=== PATIENT | female | born 1985 | race Caucasian/White ===

== ENCOUNTER 2019-08-22 00:06 | Inpatient (IN) | payer MEDICAID ==
[2019-08-22] MEDS ORDERED: Carboprost Tromethamine 250 MCG/1 ML Amp IM PRN (00:12)
[2019-08-22] MEDS ORDERED: Tranexamic Acid 1,000 MG in Sodium Chloride 0.9% 100 ML IV PRN (00:12)
[2019-08-22] MEDS ORDERED: Water For Irrigation,Sterile 1,000 ML Container IRR PRN (00:12)
[2019-08-22] MEDS ORDERED: Lidocaine 1% 50 ML MDV INJECT PRN (00:12)
[2019-08-22] MEDS ORDERED: Sodium Chloride 0.9% 2.5 ML Syringe FLUSH PRN (00:12)
[2019-08-22] MEDS ORDERED: Misoprostol 200 MCG Tab PO PRN (00:12)
[2019-08-22] MEDS ORDERED: Nalbuphine 10 MG/1 ML Vial IVPUSH PRN (00:12)
[2019-08-22] MEDS ORDERED: Ondansetron 4 MG/2 ML SDV IVPUSH PRN (00:12)
[2019-08-22] MEDS ORDERED: Terbutaline 1 MG/ML SDV SUBCUT PRN (00:12)
[2019-08-22] MEDS ORDERED: Methylergonovine 0.2 MG/1 ML Amp IM PRN (00:12)
[2019-08-22] MEDS ORDERED: Sodium Chloride 0.9% 10 ML Syringe FLUSH PRN (00:12)
[2019-08-22] MEDS ORDERED: Sodium Chloride 0.9% 10 ML SDV IV PRN (00:12)
[2019-08-22] MEDS ORDERED: Oxytocin/0.9 % Sodium Chloride 30 UNIT/500 ML BAG IV SCH (00:15)
[2019-08-22] MEDS ORDERED: Ampicillin 2 GM in Sodium Chloride 0.9% 100 ML IV ONE (01:00)
[2019-08-22] MEDS: Lactated Ringers 1,000 ML IV SCH ×2 (01:35→09:49)
[2019-08-22] MEDS: Misoprostol 25 MCG (1/4 of 100 MCG) Tab VAG PRN ×2 (01:45→10:01)
[2019-08-22] MEDS: Misoprostol 25 MCG (1/4 of 100 MCG) Tab PO PRN ×2 (01:45→10:01)
[2019-08-22] MEDS ORDERED: Misoprostol 25 MCG (1/4 of 100 MCG) Tab VAG PRN (05:00)
[2019-08-22] MEDS ORDERED: Misoprostol 25 MCG (1/4 of 100 MCG) Tab PO PRN (05:00)
[2019-08-22] MEDS: Ampicillin 1 GM in Sodium Chloride 0.9% 50 ML IV SCH ×4 (05:32→18:13)
--- NOTE | 2019-08-22 10:13 | PCM.LDHP ---
L&D History of Present Illness - General Date of Service: 08/22/19 Admit Problem/Dx: Patient Status Order with Admit Dx/Problem 08/22/19 00:12 Patient Status [ADT] Routine Admission Diagnosis/Problem Admission Diagnosis/Problem 08/22/19 10:07 33 yo EDC 08/29/2019 39 0/7wks O+, RI, GBS pos. IOL due to CHTN in Source of Information: Patient History Limitations: Reports: No Limitations - History of Present Illness Improves with: Reports: None Worsens with: Reports: None Associated Symptoms: Reports: N - Related Data Allergies/Adverse Reactions: Allergies Allergy/AdvReac Type Severity Reaction Status Date / Time latex Allergy Rash Verified 08/16/19 00:38 Home Medications: Home Meds Aspirin 1 tab PO BEDTIME 08/16/19 [History] Pnv No.95/Ferrous Fum/Folic AC [ Multivitamin Tablet] 1 tab PO BEDTIME 08/16/19 [History] Past Medical History HEENT History: Reports: Impaired Vision, Other (See Below) Other HEENT History: wears glasses for reading and driving at night. 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 Psychiatric History: Reports: Depression, Other (See Below) Other Psychiatric History: medicated very short-term Dermatologic History: Reports: Eczema - Infectious Disease History Infectious Disease History: Reports: Chicken Pox - Past Surgical History HEENT Surgical History: Reports: None Cardiovascular Surgical History: Reports: None Dermatological Surgical History: Reports: None Social & Family History - Tobacco Use Smoking Status *Q: Never Smoker Second Hand Smoke Exposure: Yes - Caffeine Use Caffeine Use: Reports: Coffee, Soda Caffeine Use Comment: little bit of soda (one a day), little bit of coffee (not often) - Recreational Drug Use Recreational Drug Use: No H&P Review of Systems - Review of Systems: Review Of Systems: See Below General: Reports: No Symptoms HEENT: Reports: No Symptoms Pulmonary: Reports: No Symptoms Cardiovascular: Reports: No Symptoms Gastrointestinal: Reports: No Symptoms Genitourinary: Reports: No Symptoms Musculoskeletal: Reports: No Symptoms Skin: Reports: No Symptoms Psychiatric: Reports: No Symptoms Neurological: Reports: No Symptoms Hematologic/Lymphatic: Reports: No Symptoms Immunologic: Reports: No Symptoms L&D Exam - Exam Exam: See Below - Vital Signs Weight: 106.594 kg - OB Specific Contraction Intensity: Mild Movement: Active Heart Tones: Present Heart Tones per Min: 146 Heart Rate (FHR) Variability: Moderate (6-25 bmp) Presentation: Vertex - Santoyo Score Santoyo Score Cervix Position: Midposition Santoyo Score Consistency: Medium Santoyo Score Effacement: 0-30% Santoyo Score Dilation: 1-2 cm Santoyo Score Infant's Station: -3 Santoyo Score Total: 3 - Exam General: Alert, Oriented, Cooperative HEENT: Hearing Intact Lungs: Clear to Auscultation, Normal Respiratory Effort. No: Decreased Breath Sounds Cardiovascular: Regular Rate, Regular Rhythm, Normal S1, Normal S2 GI/Abdominal Exam: Normal Bowel Sounds, Soft, Non-Tender, Pelvis Stable Rectal Exam: Deferred Genitourinary: Normal external exam, Normal bimanual exam, Cervical dilitation. No: Cervical fluid, Vaginal bleeding Back Exam: Normal Inspection, Full Range of Motion Extremities: Normal Inspection, Normal Range of Motion, Non-Tender, No Pedal Edema, Normal Capillary Refill. No: Carlos's Sign Skin: Warm, Dry, Intact Neurological: Reflexes Equal Bilateral, Normal Speech, Normal Tone Psychiatric: Alert, Normal Affect, Normal Mood - Patient Data Lab Results Last 24 hrs: Laboratory Results - last 24 hr 08/22/19 08/22/19 08/22/19 Range/Units 00:45 01:10 01:10 WBC 9.81 (4.0-11.0) K/uL RBC 4.48 (4.30-5.90) M/uL Hgb 14.1 (12.0-16.0) g/dL Hct 40.7 (36.0-46.0) % MCV 90.8 (80.0-98.0) fL MCH 31.5 (27.0-32.0) pg MCHC 34.6 (31.0-37.0) g/dL RDW Std Deviation 43.5 (28.0-62.0) fl RDW Coeff of Clayton 13 (11.0-15.0) % Plt Count 181 (150-400) K/uL MPV 10.00 (7.40-12.00) fL SARS-CoV-2 RNA (RT-PCR) NEGATIVE (NEGATIVE) Blood Type O POSITIVE Antibody Screen NEGATIVE Result Diagrams: 08/22/19 01:10 - Problem List (1) Supervision of normal IUP (intrauterine ) in primigravida SNOMED Code(s): 72850799, 014366016, 615598313, 368230928 ICD Code: Z34.00 - ENCNTR FOR SUPRVSN OF NORMAL FIRST , UNSP TRIMESTER Status: Acute Priority: High Current Visit: Yes Qualifiers: Trimester: third trimester Qualified Code(s): Z34.03 - Encounter for supervision of normal first , third trimester (2) Chronic hypertension affecting SNOMED Code(s): 22669183 ICD Code: O10.919 - UNSP PRE-EXISTING HTN COMP , UNSP TRIMESTER Status: Acute Priority: High Current Visit: Yes Problem List Initiated/Reviewed/Updated: Yes Orders Last 24hrs: Active Orders 24 hr Category Date Time Status Patient Status [ADT] Routine ADT 08/22/19 00:12 Active Bedrest Bathroom Privileges [RC] ASDIRECTED Care 08/22/19 00:12 Active Communication Order [RC] ASDIRECTED Care 08/22/19 00:12 Active Communication Order [RC] ASDIRECTED Care 08/22/19 00:12 Active Communication Order [RC] ASDIRECTED Care 08/22/19 00:12 Active Heart Tones [RC] CONTINUOUS Care 08/22/19 00:12 Active Non Stress Test [RC] PER UNIT ROUTINE Care 08/22/19 00:12 Active May Shower [RC] ASDIRECTED Care 08/22/19 00:12 Active Notify Provider [RC] PRN Care 08/22/19 00:12 Active Notify Provider [RC] PRN Care 08/22/19 00:12 Active Notify Provider [RC] PRN Care 08/22/19 00:12 Active Notify Provider [RC] STAT Care 08/22/19 00:12 Active Oxygen Therapy [RC] ASDIRECTED Care 08/22/19 00:12 Active Peripheral IV Care [RC] PRN Care 08/22/19 00:12 Active Up ad Ayla [RC] ASDIRECTED Care 08/22/19 00:12 Active Vaginal Exam [RC] PRN Care 08/22/19 00:12 Active Vaginal Exam [RC] PRN Care 08/22/19 00:12 Active Vital Signs [RC] PER UNIT ROUTINE Care 08/22/19 00:12 Active Regular Diet [DIET] Diet 08/22/19 Breakfast Active RPR (SYPHILIS SERO) W/ RFLX [REF] Routine Lab 08/22/19 01:10 Received Ampicillin 1 gm Med 08/22/19 05:00 Active Sodium Chloride 0.9% [Normal Saline] 50 ml IV Q4H Carboprost Tromethamine [Hemabate DS] Med 08/22/19 00:12 Active 250 mcg IM ASDIRECTED PRN Lactated Ringers [Ringers, Lactated] 1,000 ml Med 08/22/19 00:15 Active IV ASDIRECTED Lidocaine 1% [Xylocaine 1%] Med 08/22/19 00:12 Active 50 ml INJECT ONETIME PRN Methylergonovine [Methergine] Med 08/22/19 00:12 Active 0.2 mg IM ASDIRECTED PRN Nalbuphine [Nubain] Med 08/22/19 00:12 Active 10 mg IVPUSH Q1H PRN Ondansetron [Zofran] Med 08/22/19 00:12 Active 4 mg IVPUSH Q6H PRN Oxytocin/0.9 % Sodium Chloride [Oxytocin 30 Unit/500 ML Med 08/22/19 00:15 Active -NS] 30 unit in 500 ml IV TITRATE Oxytocin/0.9 % Sodium Chloride [Oxytocin 30 Unit/500 ML Med 08/22/19 00:15 Active -NS] 30 unit in 500 ml IV TITRATE Sodium Chloride 0.9% [Normal Saline] Med 08/22/19 00:12 Active 10 ml IV ASDIRECTED PRN Sodium Chloride 0.9% [Saline Flush] Med 08/22/19 00:12 Active 10 ml FLUSH ASDIRECTED PRN Sodium Chloride 0.9% [Saline Flush] Med 08/22/19 00:12 Active 2.5 ml FLUSH ASDIRECTED PRN Terbutaline [Brethine] Med 08/22/19 00:12 Active 0.25 mg SUBCUT ASDIRECTED PRN Tranexamic Acid [Cyklokapron] 1,000 mg Med 08/22/19 00:12 Active Sodium Chloride 0.9% [Normal Saline] 100 ml IV ONETIME Water For Irrigation,Sterile [Sterile Water for Med 08/22/19 00:12 Active Irrigation] 1,000 ml IRR ASDIRECTED PRN miSOPROStoL [Cytotec] Med 08/22/19 00:12 Active 200 mcg PO ONETIME PRN miSOPROStoL [Cytotec] Med 08/22/19 01:00 Active 25 mcg PO ONETIME PRN miSOPROStoL [Cytotec] Med 08/22/19 05:00 Active 25 mcg PO Q4H PRN miSOPROStoL [Cytotec] Med 08/22/19 01:00 Active 25 mcg VAG ONETIME PRN miSOPROStoL [Cytotec] Med 08/22/19 05:00 Active 25 mcg VAG Q4H PRN Scalp Electrode [WOMSER] Per Unit Routine Oth 08/22/19 00:12 Ordered Medication Administration Instruction [OM.PC] Q3H Oth 08/22/19 00:15 Ordered Peripheral IV Insertion Adult [OM.PC] Routine Oth 08/22/19 00:12 Ordered Resuscitation Status Routine Resus Stat 08/22/19 00:12 Ordered Medication Orders Carboprost Tromethamine (Hemabate Ds) 250 mcg IM ASDIRECTED PRN PRN Reason: Post Hemorrhage Oxytocin/Sodium Chloride (Oxytocin 30 Unit/500 Ml-Ns) 30 unit in 500 mls @ 999 mls/hr IV TITRATE [facility] Tranexamic Acid 1,000 mg/ (Sodium Chloride) 110 mls @ 660 mls/hr IV ONETIME PRN PRN Reason: Bleeding Oxytocin/Sodium Chloride (Oxytocin 30 Unit/500 Ml-Ns) 30 unit in 500 mls @ 2 mls/hr IV TITRATE [facility]; Protocol Ampicillin Sodium 1 gm/ Sodium (Chloride) 50 mls @ 100 mls/hr IV Q4H [facility] Last Admin: 08/22/19 09:48 Dose: 100 mls/hr Documented by: Infusion: 08/22/19 06:02 Dose: 100 mls/hr Documented by: Admin: 08/22/19 05:32 Dose: 100 mls/hr Documented by: ZION Lactated Ringer's (Ringers, Lactated) 1,000 mls @ 150 mls/hr IV ASDIRECTED KACEY Last Admin: 08/22/19 09:49 Dose: 150 mls/hr Documented by: Infusion: 08/22/19 08:16 Dose: 150 mls/hr Documented by: Admin: 08/22/19 01:35 Dose: 150 mls/hr Documented by: ZION Lidocaine HCl (Xylocaine 1%) 50 ml INJECT ONETIME PRN PRN Reason: Laceration repair Methylergonovine Maleate (Methergine) 0.2 mg IM ASDIRECTED PRN PRN Reason: Post Hemorrhage Misoprostol (Cytotec) 200 mcg PO ONETIME PRN PRN Reason: Post Hemorrhage Misoprostol (Cytotec) 25 mcg VAG ONETIME PRN PRN Reason: Cervical Ripening Last Admin: 08/22/19 10:01 Dose: 25 mcg Documented by: Admin: 08/22/19 01:45 Dose: 25 mcg Documented by: BHARATTIF Misoprostol (Cytotec) 25 mcg VAG Q4H PRN PRN Reason: Cervical Ripening Last Admin: 08/22/19 05:47 Dose: 25 mcg Documented by: ZION Misoprostol (Cytotec) 25 mcg PO ONETIME PRN PRN Reason: Cervical Ripening Last Admin: 08/22/19 10:01 Dose: 25 mcg Documented by: Admin: 08/22/19 01:45 Dose: 25 mcg Documented by: ZION Misoprostol (Cytotec) 25 mcg PO Q4H PRN PRN Reason: Cervical Ripening Last Admin: 08/22/19 05:47 Dose: 25 mcg Documented by: ZION Nalbuphine HCl (Nubain) 10 mg IVPUSH Q1H PRN PRN Reason: Pain (severe 7-10) Ondansetron HCl (Zofran) 4 mg IVPUSH Q6H PRN PRN Reason: Nausea/Vomiting Sodium Chloride (Saline Flush) 10 ml FLUSH ASDIRECTED PRN PRN Reason: Keep Vein Open Sodium Chloride (Saline Flush) 2.5 ml FLUSH ASDIRECTED PRN PRN Reason: Keep Vein Open Sodium Chloride (Normal Saline) 10 ml IV ASDIRECTED PRN PRN Reason: IV Use Sterile Water (Sterile Water For Irrigation) 1,000 ml IRR ASDIRECTED PRN PRN Reason: delivery Terbutaline Sulfate (Brethine) 0.25 mg SUBCUT ASDIRECTED PRN PRN Reason: Tacysystole Assessment/Plan Comment:: IOL A: 33 yo EDC 08/29/2019 39 0/7wks O+, RI, GBS pos. IOL due to CHTN in P: Admit, Cytotec to pitocin. Epidural prn. Anticipate . Dr Fowler updated
[2019-08-22] MEDS ORDERED: fentaNYL 100 MCG/2 ML SDV ONE (18:20)
[2019-08-22] MEDS ORDERED: Bupivicaine/fentaNYL/NS 250 ML ONE (18:20)
--- NOTE | 2019-08-22 18:56 | PCM.PREANE ---
Preanesthetic Assessment - Anesthesia/Transfusion/Family Hx Anesthesia History: No Prior Anesthesia Family History of Anesthesia Reaction: No Transfusion History: No Prior Transfusion(s) Intubation History: Unknown - Review of Systems General: No Symptoms Pulmonary: No Symptoms Cardiovascular: Other (PIH) Gastrointestinal: No Symptoms Neurological: No Symptoms Other: Reports: None - Physical Assessment NPO Status Date: 08/22/19 NPO Status Time: 18:00 Height: 5 ft 3 in Weight: 106.594 kg ASA Class: 3 Mental Status: Alert & Oriented x3 Airway Class: Mallampati = 3 Dentition: Reports: Normal Dentition Thyro-Mental Finger Breadths: 2 ROM/Head Extension: Full Lungs: Clear to Auscultation, Normal Respiratory Effort Cardiovascular: Regular Rate, Regular Rhythm - Lab Values: Laboratory Last Values WBC 9.81 K/uL (4.0-11.0) 08/22/19 01:10 RBC 4.48 M/uL (4.30-5.90) 08/22/19 01:10 Hgb 14.1 g/dL (12.0-16.0) 08/22/19 01:10 Hct 40.7 % (36.0-46.0) 08/22/19 01:10 MCV 90.8 fL (80.0-98.0) 08/22/19 01:10 MCH 31.5 pg (27.0-32.0) 08/22/19 01:10 MCHC 34.6 g/dL (31.0-37.0) 08/22/19 01:10 RDW Std Deviation 43.5 fl (28.0-62.0) 08/22/19 01:10 RDW Coeff of Clayton 13 % (11.0-15.0) 08/22/19 01:10 Plt Count 181 K/uL (150-400) 08/22/19 01:10 MPV 10.00 fL (7.40-12.00) 08/22/19 01:10 SARS-CoV-2 RNA (RT-PCR) NEGATIVE (NEGATIVE) 08/22/19 00:45 Blood Type O POSITIVE 08/22/19 01:10 Antibody Screen NEGATIVE 08/22/19 01:10 - Allergies Allergies/Adverse Reactions: Allergies Allergy/AdvReac Type Severity Reaction Status Date / Time latex Allergy Rash Verified 08/16/19 00:38 - Acknowledgements Anesthesia Type Planned: Spinal (ITN and ANITA), Epidural Pt an Appropriate Candidate for the Planned Anesthesia: Yes Alternatives and Risks of Anesthesia Discussed w Pt/Guardian: Yes Pt/Guardian Understands and Agrees with Anesthesia Plan: Yes PreAnesthesia Questionnaire HEENT History: Reports: Impaired Vision, Other (See Below) Other HEENT History: wears glasses for reading and driving at night. 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 Psychiatric History: Reports: Depression, Other (See Below) Other Psychiatric History: medicated very short-term Dermatologic History: Reports: Eczema - Infectious Disease History Infectious Disease History: Reports: Chicken Pox - Past Surgical History HEENT Surgical History: Reports: None Cardiovascular Surgical History: Reports: None Dermatological Surgical History: Reports: None - SUBSTANCE USE Smoking Status *Q: Never Smoker Second Hand Smoke Exposure: Yes Recreational Drug Use History: No - HOME MEDS Home Medications: Home Meds Aspirin 1 tab PO BEDTIME 08/16/19 [History] Pnv No.95/Ferrous Fum/Folic AC [ Multivitamin Tablet] 1 tab PO BEDTIME 08/16/19 [History] - CURRENT (IN HOUSE) MEDS Current Meds: Current Medications Carboprost Tromethamine (Hemabate Ds) 250 mcg IM ASDIRECTED PRN PRN Reason: Post Hemorrhage Oxytocin/Sodium Chloride (Oxytocin 30 Unit/500 Ml-Ns) 30 unit in 500 mls @ 999 mls/hr IV TITRATE KACE[facility] Tranexamic Acid 1,000 mg/ (Sodium Chloride) 110 mls @ 660 mls/hr IV ONETIME PRN PRN Reason: Bleeding Oxytocin/Sodium Chloride (Oxytocin 30 Unit/500 Ml-Ns) 30 unit in 500 mls @ 2 mls/hr IV TITRATE KACEY; Protocol Ampicillin Sodium 1 gm/ Sodium (Chloride) 50 mls @ 100 mls/hr IV Q4H KACE[facility] Last Admin: 08/22/19 13:38 Dose: 100 mls/hr Documented by: Lactated Ringer's (Ringers, Lactated) 1,000 mls @ 150 mls/hr IV ASDIRECTED KACEY Last Admin: 08/22/19 09:49 Dose: 150 mls/hr Documented by: Lidocaine HCl (Xylocaine 1%) 50 ml INJECT ONETIME PRN PRN Reason: Laceration repair Methylergonovine Maleate (Methergine) 0.2 mg IM ASDIRECTED PRN PRN Reason: Post Hemorrhage Misoprostol (Cytotec) 200 mcg PO ONETIME PRN PRN Reason: Post Hemorrhage Misoprostol (Cytotec) 25 mcg VAG ONETIME PRN PRN Reason: Cervical Ripening Last Admin: 08/22/19 10:01 Dose: 25 mcg Documented by: Misoprostol (Cytotec) 25 mcg VAG Q4H PRN PRN Reason: Cervical Ripening Last Admin: 08/22/19 05:47 Dose: 25 mcg Documented by: Misoprostol (Cytotec) 25 mcg PO ONETIME PRN PRN Reason: Cervical Ripening Last Admin: 08/22/19 10:01 Dose: 25 mcg Documented by: Misoprostol (Cytotec) 25 mcg PO Q4H PRN PRN Reason: Cervical Ripening Last Admin: 08/22/19 05:47 Dose: 25 mcg Documented by: Nalbuphine HCl (Nubain) 10 mg IVPUSH Q1H PRN PRN Reason: Pain (severe 7-10) Last Admin: 08/22/19 15:57 Dose: 10 mg Documented by: Ondansetron HCl (Zofran) 4 mg IVPUSH Q6H PRN PRN Reason: Nausea/Vomiting Last Admin: 08/22/19 15:58 Dose: 4 mg Documented by: Sodium Chloride (Saline Flush) 10 ml FLUSH ASDIRECTED PRN PRN Reason: Keep Vein Open Sodium Chloride (Saline Flush) 2.5 ml FLUSH ASDIRECTED PRN PRN Reason: Keep Vein Open Sodium Chloride (Normal Saline) 10 ml IV ASDIRECTED PRN PRN Reason: IV Use Sterile Water (Sterile Water For Irrigation) 1,000 ml IRR ASDIRECTED PRN PRN Reason: delivery Terbutaline Sulfate (Brethine) 0.25 mg SUBCUT ASDIRECTED PRN PRN Reason: Tacysystole Discontinued Medications Fentanyl (Sublimaze) Confirm Administered Dose 100 mcg .ROUTE .STK-MED ONE Stop: 08/22/19 18:21 Ampicillin Sodium 2 gm/ Sodium (Chloride) 100 mls @ 200 mls/hr IV ONETIME ONE Stop: 08/22/19 01:29 Last Admin: 08/22/19 01:35 Dose: 200 mls/hr Documented by: Fentanyl/Bupivacaine HCl (Fentanyl/Bupivacaine/Ns 2 Mcg-0.125% 250 Ml) Confirm Administered Dose 250 mls @ as directed .ROUTE .[facility] Stop: 08/22/19 18:21
[2019-08-22] MEDS: Oxytocin/0.9 % Sodium Chloride 30 UNIT/500 ML BAG IV SCH ×2 (21:05→21:36)
[2019-08-22] MEDS ORDERED: Bupivacaine 0.25% 10 ML SDV ONE (21:34)
--- NOTE | 2019-08-22 21:52 | PCM.SN.2 ---
- Free Text/Narrative Note: Called to OB by TAMMY Miranda. She would like patient bolused for possible retained products and a second IV start. 10 ml of 0.25% Bupivacaine given via epidural. IV started in left FA on 2nd attempt[address] Dr Fowler checks for products.
[2019-08-22] MEDS ORDERED: oxyCODONE 5 MG Tab PO PRN (22:02)
[2019-08-22] MEDS ORDERED: Ibuprofen 400 MG Tab PO PRN (22:02)
[2019-08-22] MEDS ORDERED: Acetaminophen 500 MG Tab PO PRN ×2 (22:02)
[2019-08-22] MEDS ORDERED: Bisacodyl 10 MG Supp RECTAL PRN (22:02)
[2019-08-22] MEDS ORDERED: Witch Hazel Medicated Pads 40/Jar TOP PRN (22:02)
[2019-08-22] MEDS ORDERED: Docusate Sodium 100 MG Cap PO PRN (22:02)
[2019-08-22] MEDS ORDERED: Ibuprofen 800 MG Tab PO PRN (22:02)
[2019-08-22] MEDS ORDERED: Benzocaine/Menthol 20%-0.5% Spray 78 GM Cannister TOP PRN (22:02)
[2019-08-22] MEDS ORDERED: Lanolin 100% Cream 7 GM Tube TOP PRN (22:02)
--- NOTE | 2019-08-22 22:17 | PCM.DEL ---
L & D Note - General Info Date of Service: 08/22/19 Mother's Due Date: 08/29/19 - Delivery Note Labor: Spontaneous Delivery Outcome: Livebirth Infant Delivery Method: Spontaneous Vaginal Delivery-Single Infant Delivery Mode: Spontaneous Presentation: Vertex Anesthesia Type: Epidural, Intrathecal Episiotomy Type: None Laceration: None Placenta: Manual Removal Cord: 3 Vessels Estimated Blood Loss: 300 Score 1 min: 8 Score 5 min: 9 Second Stage Interventions: Reports: Pushing, Pulls Own Legs Back Delivery Comments (Free Text/Narrative):: of viable female. Head delivered with good pushing, nuchal x1 reduced over head. Shoulders and body followed easily. Infant with spont cry. Placed on mothers abd. Pitocin to IVF. Delayed cord clamping, cord clamped and cut by FOB. Cord blood collected. Waited for 25min for placenta to separate. Cord detached from placenta, manual removal of placenta. Dr Fowler asked to come confirm complete removal. He agreed that complete removal. Will order TAUS in am for again confirm removal. Inspection noted intact perineum. EBL 300cc. Mother and b annat bonding well in recovery. Stable - General Info Date of Service: 08/22/19 Admission Dx/Problem (Free Text): Patient Status Order with Admit Dx/Problem 08/22/19 00:12 Patient Status [ADT] Routine Admission Diagnosis/Problem Admission Diagnosis/Problem 08/22/19 10:07 33 yo EDC 08/29/2019 39 0/7wks O+, RI, GBS pos. IOL due to CHTN in Functional Status: Reports: Pain Controlled - Review of Systems General: Reports: No Symptoms HEENT: Reports: No Symptoms Pulmonary: Reports: No Symptoms Cardiovascular: Reports: No Symptoms Gastrointestinal: Reports: No Symptoms Genitourinary: Reports: No Symptoms Musculoskeletal: Reports: No Symptoms Skin: Reports: No Symptoms Neurological: Reports: No Symptoms Psychiatric: Reports: No Symptoms - Patient Data Weight - Most Recent: 106.594 kg I&O - Last 24 Hours: Intake & Output 08/22/19 08/22/19 08/22/19 06:59 14:59 22:59 Intake Total 148 1050 Balance 148 1050 Lab Results Last 24 Hours: Laboratory Results - last 24 hr 08/22/19 08/22/19 08/22/19 Range/Units 00:45 01:10 01:10 WBC 9.81 (4.0-11.0) K/uL RBC 4.48 (4.30-5.90) M/uL Hgb 14.1 (12.0-16.0) g/dL Hct 40.7 (36.0-46.0) % MCV 90.8 (80.0-98.0) fL MCH 31.5 (27.0-32.0) pg MCHC 34.6 (31.0-37.0) g/dL RDW Std Deviation 43.5 (28.0-62.0) fl RDW Coeff of [place] 13 (11.0-15.0) % Plt Count 181 (150-400) K/uL MPV 10.00 (7.40-12.00) fL SARS-CoV-2 RNA (RT-PCR) NEGATIVE (NEGATIVE) Blood Type O POSITIVE Antibody Screen NEGATIVE Med Orders - Current: Current Medications Acetaminophen (Tylenol Extra Strength) 500 mg PO Q4H PRN PRN Reason: Pain Acetaminophen (Tylenol Extra Strength) 1,000 mg PO Q4H PRN PRN Reason: Pain Benzocaine/Menthol (Dermoplast Pain Relief 20%-0.5% [place]) 78 gm TOP ASDIRECTED PRN PRN Reason: Perineal Comfort Measure Bisacodyl (Dulcolax) 10 mg RECTAL ONETIME PRN PRN Reason: Constipation Docusate Sodium (Colace) 100 mg PO BID PRN PRN Reason: Constipation Emollient Ointment (Lansinoh Hpa) 0 gm TOP ASDIRECTED PRN PRN Reason: Sore Nipples Ibuprofen (Motrin) 400 mg PO Q4H PRN PRN Reason: Pain Ibuprofen (Motrin) 800 mg PO Q6H PRN PRN Reason: Pain Oxycodone HCl (Oxycodone) 5 mg PO Q2H PRN PRN Reason: Pain Witch Rody (Tucks) 1 pad TOP ASDIRECTED PRN PRN Reason: comfort care Discontinued Medications Bupivacaine HCl (Sensorcaine-Mpf 0.25%) Confirm Administered Dose 10 ml .ROUTE .STK-MED ONE Stop: 08/22/19 21:35 Carboprost Tromethamine (Hemabate Ds) 250 mcg IM ASDIRECTED PRN PRN Reason: Post Hemorrhage Fentanyl (Sublimaze) Confirm Administered Dose 100 mcg .ROUTE .[facility] ONE Stop: 08/22/19 18:21 Oxytocin/Sodium Chloride (Oxytocin 30 Unit/500 Ml-Ns) 30 unit in 500 mls @ 999 mls/hr IV TITRATE [facility] Tranexamic Acid 1,000 mg/ (Sodium Chloride) 110 mls @ 660 mls/hr IV ONETIME PRN PRN Reason: Bleeding Oxytocin/Sodium Chloride (Oxytocin 30 Unit/500 Ml-Ns) 30 unit in 500 mls @ 2 mls/hr IV TITRATE [facility]; Protocol Ampicillin Sodium 2 gm/ Sodium (Chloride) 100 mls @ 200 mls/hr IV ONETIME ONE Stop: 08/22/19 01:29 Last Admin: 08/22/19 01:35 Dose: 200 mls/hr Documented by: Ampicillin Sodium 1 gm/ Sodium (Chloride) 50 mls @ 100 mls/hr IV Q4H [facility] Last Admin: 08/22/19 18:13 Dose: 100 mls/hr Documented by: Lactated Ringer's (Ringers, Lactated) 1,000 mls @ 150 mls/hr IV ASDIRECTED [facility] Last Infusion: 08/22/19 18:13 Dose: Infused Documented by: Fentanyl/Bupivacaine HCl (Fentanyl/Bupivacaine/Ns 2 Mcg-0.125% 250 Ml) Confirm Administered Dose 250 mls @ as directed .ROUTE .[facility] ONE Stop: 08/22/19 18:21 Lidocaine HCl (Xylocaine 1%) 50 ml INJECT ONETIME PRN PRN Reason: Laceration repair Methylergonovine Maleate (Methergine) 0.2 mg IM ASDIRECTED PRN PRN Reason: Post Hemorrhage Misoprostol (Cytotec) 200 mcg PO ONETIME PRN PRN Reason: Post Hemorrhage Misoprostol (Cytotec) 25 mcg VAG ONETIME PRN PRN Reason: Cervical Ripening Last Admin: 08/22/19 10:01 Dose: 25 mcg Documented by: Misoprostol (Cytotec) 25 mcg VAG Q4H PRN PRN Reason: Cervical Ripening Last Admin: 08/22/19 05:47 Dose: 25 mcg Documented by: Misoprostol (Cytotec) 25 mcg PO ONETIME PRN PRN Reason: Cervical Ripening Last Admin: 08/22/19 10:01 Dose: 25 mcg Documented by: Misoprostol (Cytotec) 25 mcg PO Q4H PRN PRN Reason: Cervical Ripening Last Admin: 08/22/19 05:47 Dose: 25 mcg Documented by: Nalbuphine HCl (Nubain) 10 mg IVPUSH Q1H PRN PRN Reason: Pain (severe 7-10) Last Admin: 08/22/19 15:57 Dose: 10 mg Documented by: Ondansetron HCl (Zofran) 4 mg IVPUSH Q6H PRN PRN Reason: Nausea/Vomiting Last Admin: 08/22/19 15:58 Dose: 4 mg Documented by: Sodium Chloride (Saline Flush) 10 ml FLUSH ASDIRECTED PRN PRN Reason: Keep Vein Open Sodium Chloride (Saline Flush) 2.5 ml FLUSH ASDIRECTED PRN PRN Reason: Keep Vein Open Sodium Chloride (Normal Saline) 10 ml IV ASDIRECTED PRN PRN Reason: IV Use Sterile Water (Sterile Water For Irrigation) 1,000 ml IRR ASDIRECTED PRN PRN Reason: delivery Terbutaline Sulfate (Brethine) 0.25 mg SUBCUT ASDIRECTED PRN PRN Reason: Tacysystole - Exam General: Alert, Oriented, Cooperative, No Acute Distress Lungs: Normal Respiratory Effort GI/Abdominal Exam: Soft, Non-Tender, Pelvis Stable (Female) Exam: Normal External Exam, Normal Bimanual Exam, Vaginal Bleeding. No: Cervical Lesions, Vaginal Lesions Back Exam: Full Range of Motion Extremities: Normal Range of Motion, Pedal Edema Skin: Warm, Dry, Intact Neurological: No New Focal Deficit, Normal Speech, Normal Tone Psy/Mental Status: Alert, Normal Affect, Normal Mood - Problem List & Annotations (1) Supervision of normal IUP (intrauterine ) in primigravida SNOMED Code(s): 16081376, 647787541, 258759361, 152276244 Code(s): Z34.00 - ENCNTR FOR SUPRVSN OF NORMAL FIRST , UNSP TRIMESTER Status: Acute Priority: High Current Visit: Yes Qualifiers: Trimester: third trimester Qualified Code(s): Z34.03 - Encounter for s upervision of normal first , third trimester (2) Chronic hypertension affecting SNOMED Code(s): 88857121 Code(s): O10.919 - UNSP PRE-EXISTING HTN COMP , UNSP TRIMESTER Status: Acute Priority: High Current Visit: Yes - Problem List Review Problem List Initiated/Reviewed/Updated: Yes - My Orders Last 24 Hours: My Active Orders 08/22/19 22:02 May Shower [RC] ASDIRECTED Up ad Ayla [RC] ASDIRECTED Vital Signs [RC] PER UNIT ROUTINE Acetaminophen [Tylenol Extra Strength] 1,000 mg PO Q4H PRN Acetaminophen [Tylenol Extra Strength] 500 mg PO Q4H PRN Benzocaine/Menthol [Dermoplast Pain Relief 20%-0.5% [place]] 78 gm TOP ASDIRECTED PRN Docusate Sodium [Colace] 100 mg PO BID PRN Ibuprofen [Motrin] 400 mg PO Q4H PRN Ibuprofen [Motrin] 800 mg PO Q6H PRN Lanolin [Lansinoh HPA] See Dose Instructions TOP ASDIRECTED PRN bisacodyL [Dulcolax] 10 mg RECTAL ONETIME PRN oxyCODONE 5 mg PO Q2H PRN witch Rody [Tucks] 1 pad TOP ASDIRECTED PRN Assess Lochia [WOMSER] Per Unit Routine Assess Uterine Involution [WOMSER] Per Unit Routine Peripheral IV Discontinue [OM.PC] Routine Resuscitation Status Routine 08/22/19 22:04 Patient Status [ADT] Routine 08/23/19 05:11 HEMOGLOBIN/HEMATOCRIT,HH [HEME] Timed 08/23/19 Breakfast Regular Diet [DIET] 08/23/19 08:00 Pelvis Non OB Ltd [US] Routine - Plan Plan:: IOL A: 33 yo EDC 08/29/2019 39 0/7wks O+, RI, GBS pos. IOL due to CHTN in P: Admit, Cytotec to pitocin. Epidural prn. Anticipate . Dr Fowler updated Delivery A: of viable female, APGARS , Wt 7lb 11oz. Intact, EBL 300cc, manual extraction of the placenta. P: Abd u/s in am to confirm complete removal of placenta. Routine pp plan of care.
--- NOTE | 2019-08-23 07:28 | PCM48HPAN ---
Post Anesthesia Note - EVALUATION WITHIN 48HRS OF ANESTHETIC Vital Signs in Normal Range: Yes Patient Participated in Evaluation: Yes Respiratory Function Stable: Yes Airway Patent: Yes Cardiovascular Function Stable: Yes Hydration Status Stable: Yes Pain Control Satisfactory: Yes Nausea and Vomiting Control Satisfactory: Yes Mental Status Recovered: Yes Vital Signs: Last Vital Signs Temp 36.2 C 08/23/19 03:48 Pulse 86 08/23/19 03:48 Resp 15 08/23/19 03:48 BP 109/64 08/23/19 03:48 Pulse Ox 96 08/23/19 03:48
--- NOTE | 2019-08-23 08:56 | US ---
Pelvic ultrasound: Multiple real-time images were obtained transabdominally Comparison: No prior pelvic imaging. Findings: Small amount of debris is noted within the endometrial cavity. Uterus is a enlarged compatible with state. Ovaries appear normal. No free fluid is seen. Endometrium is thickened at 4.0 cm. Measurements: Uterus: Length 17.8 cm, AP height 11.0 cm Right ovary: 3.1 x 2.5 x 2.6 cm Left ovary: 2.4 x 2.5 x 2.6 cm Impression: 1. Thickened endometrium showing a small amount of debris. Findings most likely debris and probable mild amount of retained products of conception. 2. No additional abnormality is seen. Diagnostic code #3 This report was dictated in MDT
--- NOTE | 2019-08-23 09:57 | PCM.PNPP ---
- General Info Date of Service: 08/23/19 Functional Status: Reports: Pain Controlled - Review of Systems General: Reports: No Symptoms HEENT: Reports: No Symptoms Pulmonary: Reports: No Symptoms Cardiovascular: Reports: No Symptoms Gastrointestinal: Reports: No Symptoms Genitourinary: Reports: No Symptoms Musculoskeletal: Reports: No Symptoms Skin: Reports: No Symptoms Neurological: Reports: No Symptoms Psychiatric: Reports: No Symptoms - General Info Date of Service: 08/23/19 - Patient Data Vital Signs - Most Recent: Last Vital Signs Temp 36.2 C 08/23/19 03:48 Pulse 86 08/23/19 03:48 Resp 15 08/23/19 03:48 BP 109/64 08/23/19 03:48 Pulse Ox 96 08/23/19 03:48 Weight - Most Recent: 106.594 kg I&O - Last 24 Hours: Intake & Output 08/22/19 08/23/19 08/23/19 22:59 06:59 14:59 Intake Total 1050 Balance 1050 Lab Results - Last 24 Hours: Laboratory Results - last 24 hr 08/23/19 Range/Units 05:52 Hgb 13.1 (12.0-16.0) g/dL Hct 38.6 (36.0-46.0) % Med Orders - Current: Current Medications Acetaminophen (Tylenol Extra Strength) 500 mg PO Q4H PRN PRN Reason: Pain Acetaminophen (Tylenol Extra Strength) 1,000 mg PO Q4H PRN PRN Reason: Pain Last Admin: 08/23/19 00:23 Dose: 1,000 mg Documented by: Benzocaine/Menthol (Dermoplast Pain Relief 20%-0.5% [place]) 78 gm TOP ASDIRECTED PRN PRN Reason: Perineal Comfort Measure Bisacodyl (Dulcolax) 10 mg RECTAL ONETIME PRN PRN Reason: Constipation Docusate Sodium (Colace) 100 mg PO BID PRN PRN Reason: Constipation Emollient Ointment (Lansinoh Hpa) 0 gm TOP ASDIRECTED PRN PRN Reason: Sore Nipples Ibuprofen (Motrin) 400 mg PO Q4H PRN PRN Reason: Pain Ibuprofen (Motrin) 800 mg PO Q6H PRN PRN Reason: Pain Oxycodone HCl (Oxycodone) 5 mg PO Q2H PRN PRN Reason: Pain Witch Rody (Tucks) 1 pad TOP ASDIRECTED PRN PRN Reason: comfort care Discontinued Medications Bupivacaine HCl (Sensorcaine-Mpf 0.25%) Confirm Administered Dose 10 ml .ROUTE .[facility] ONE Stop: 08/22/19 21:35 Carboprost Tromethamine (Hemabate Ds) 250 mcg IM ASDIRECTED PRN PRN Reason: Post Hemorrhage Fentanyl (Sublimaze) Confirm Administered Dose 100 mcg .ROUTE .[facility] ONE Stop: 08/22/19 18:21 Oxytocin/Sodium Chloride (Oxytocin 30 Unit/500 Ml-Ns) 30 unit in 500 mls @ 999 mls/hr IV TITRATE [facility] Last Admin: 08/22/19 21:36 Dose: 999 mls/hr Documented by: Tranexamic Acid 1,000 mg/ (Sodium Chloride) 110 mls @ 660 mls/hr IV ONETIME PRN PRN Reason: Bleeding Oxytocin/Sodium Chloride (Oxytocin 30 Unit/500 Ml-Ns) 30 unit in 500 mls @ 2 mls/hr IV TITRATE [facility]; Protocol Ampicillin Sodium 2 gm/ Sodium (Chloride) 100 mls @ 200 mls/hr IV ONETIME ONE Stop: 08/22/19 01:29 Last Admin: 08/22/19 01:35 Dose: 200 mls/hr Documented by: Ampicillin Sodium 1 gm/ Sodium (Chloride) 50 mls @ 100 mls/hr IV Q4H [facility] Last Admin: 08/22/19 18:13 Dose: 100 mls/hr Documented by: Lactated Ringer's (Ringers, Lactated) 1,000 mls @ 150 mls/hr IV ASDIRECTED [facility] Last Infusion: 08/22/19 18:13 Dose: Infused Documented by: Fentanyl/Bupivacaine HCl (Fentanyl/Bupivacaine/Ns 2 Mcg-0.125% 250 Ml) Confirm Administered Dose 250 mls @ as directed .ROUTE .[facility] ONE Stop: 08/22/19 18:21 Lidocaine HCl (Xylocaine 1%) 50 ml INJECT ONETIME PRN PRN Reason: Laceration repair Methylergonovine Maleate (Methergine) 0.2 mg IM ASDIRECTED PRN PRN Reason: Post Hemorrhage Misoprostol (Cytotec) 200 mcg PO ONETIME PRN PRN Reason: Post Hemorrhage Misoprostol (Cytotec) 25 mcg VAG ONETIME PRN PRN Reason: Cervical Ripening Last Admin: 08/22/19 10:01 Dose: 25 mcg Documented by: Misoprostol (Cytotec) 25 mcg VAG Q4H PRN PRN Reason: Cervical Ripening Last Admin: 08/22/19 05:47 Dose: 25 mcg Documented by: Misoprostol (Cytotec) 25 mcg PO ONETIME PRN PRN Reason: Cervical Ripening Last Admin: 08/22/19 10:01 Dose: 25 mcg Documented by: Misoprostol (Cytotec) 25 mcg PO Q4H PRN PRN Reason: Cervical Ripening Last Admin: 08/22/19 05:47 Dose: 25 mcg Documented by: Nalbuphine HCl (Nubain) 10 mg IVPUSH Q1H PRN PRN Reason: Pain (severe 7-10) Last Admin: 08/22/19 15:57 Dose: 10 mg Documented by: Ondansetron HCl (Zofran) 4 mg IVPUSH Q6H PRN PRN Reason: Nausea/Vomiting Last Admin: 08/22/19 15:58 Dose: 4 mg Documented by: Sodium Chloride (Saline Flush) 10 ml FLUSH ASDIRECTED PRN PRN Reason: Keep Vein Open Sodium Chloride (Saline Flush) 2.5 ml FLUSH ASDIRECTED PRN PRN Reason: Keep Vein Open Sodium Chloride (Normal Saline) 10 ml IV ASDIRECTED PRN PRN Reason: IV Use Sterile Water (Sterile Water For Irrigation) 1,000 ml IRR ASDIRECTED PRN PRN Reason: delivery Terbutaline Sulfate (Brethine) 0.25 mg SUBCUT ASDIRECTED PRN PRN Reason: Tacysystole - Interaction Disposition, : [place] in Room with Family Interaction: Holding Infant Feeding: Attempted ; Nursed Fair/Poor Support Person: Significant Other - Recovery Exam Fundal Tone: Firm Fundal Level: 2 Fingerbreadths Below Umbilicus Fundal Placement: Midline Lochia Amount: Small Lochia Color: Rubra/Red Perineum Description: Intact, Minimal Bruising/Swelling Episiotomy/Laceration: None - Exam General: Alert, Oriented HEENT: Pupils Equal Neck: Supple Lungs: Clear to Auscultation, Normal Respiratory Effort Cardiovascular: Regular Rate, Regular Rhythm GI/Abdominal Exam: Normal Bowel Sounds, Soft, Non-Tender, No Organomegaly, No Distention, No Abnormal Bruit, No Mass, Pelvis Stable Extremities: Normal Inspection, Normal Range of Motion, Non-Tender, No Pedal Edema, Normal Capillary Refill Skin: Warm, Dry, Intact Wound/Incisions: Healing Well Neurological: No New Focal Deficit Psy/Mental Status: Alert, Normal Affect, Normal Mood - Problem List Review Problem List Initiated/Reviewed/Updated: Yes - Plan Plan:: IOL A: 33 yo EDC 08/29/2019 39 0/7wks O+, RI, GBS pos. IOL due to CHTN in P: Admit, Cytotec to pitocin. Epidural prn. Anticipate . Dr Fowler updated Delivery A: of viable female, APGARS , Wt 7lb 11oz. Intact, EBL 300cc, manual extraction of the placenta. P: Abd u/s in am to confirm complete removal of placenta. Routine pp plan of care.
--- NOTE | 2019-08-24 08:23 | PCM.DCSUM1 ---
Discharge Summary - Hospital Course Free Text/Narrative:: Discharge home. Follow up in the clinic in 6 weeks for routine visit. Diagnosis: Stroke: No Modified Clanton Scale: No Symptoms at All Modified [place] Scale Score: 0 - Discharge Data Discharge Date: 08/24/19 Discharge Disposition: Home, Self-Care 01 Condition: Good - Referral to Home Health Primary Care Physician: Salvador Jackson MD - Discharge Diagnosis/Problem(s) (1) (spontaneous vaginal delivery) SNOMED Code(s): 512410711 ICD Code: O80 - ENCOUNTER FOR FULL-TERM UNCOMPLICATED DELIVERY Status: Acute Priority: High Current Visit: Yes - Patient Instructions Diet: Regular Diet as Tolerated, Drink 8-10+ Glasses/Day Activity: As Tolerated, No Strenuous Activities, Rest and Relax Today Driving: May Drive Today Showering/Bathing: May Shower Notify Provider of: Fever, Increased Pain, Swelling and Redness, Drainage, Nausea and/or Vomiting - Discharge Plan *PRESCRIPTION DRUG MONITORING PROGRAM REVIEWED*: Not Applicable *COPY OF PRESCRIPTION DRUG MONITORING REPORT IN PATIENT LISSA: Not Applicable Prescriptions/Med Rec: Ibuprofen [Motrin] 800 mg PO Q6H PRN #90 tablet PRN Reason: Pain Home Medications: Home Meds Aspirin 1 tab PO BEDTIME 08/16/19 [History] Pnv No.95/Ferrous Fum/Folic AC [ Multivitamin Tablet] 1 tab PO BEDTIME 08/16/19 [History] Ibuprofen [Motrin] 800 mg PO Q6H PRN #90 tablet 08/24/19 [Rx] Oxygen Therapy Mode: Room Air Referrals: [facility] [Outside] Batsheva Ferguson CNM [Mid-] - 10/03/19 1:00 pm - Discharge Summary/Plan Comment DC Time >30 min.: Yes - General Info Date of Service: 08/24/19 Admission Dx/Problem (Free Text: Patient Status Order with Admit Dx/Problem 08/22/19 00:12 Patient Status [ADT] Routine Admission Diagnosis/Problem Admission Diagnosis/Problem 08/22/19 10:07 33 yo EDC 08/29/2019 39 0/7wks O+, RI, GBS pos. IOL due to CHTN in Functional Status: Reports: Pain Controlled, Tolerating Diet, Ambulating, Urinating - Review of Systems General: Reports: No Symptoms HEENT: Reports: No Symptoms Pulmonary: Reports: No Symptoms Cardiovascular: Reports: No Symptoms Gastrointestinal: Reports: No Symptoms Genitourinary: Reports: No Symptoms Musculoskeletal: Reports: No Symptoms Skin: Reports: No Symptoms Neurological: Reports: No Symptoms Psychiatric: Reports: No Symptoms - Patient Data Vitals - Most Recent: Last Vital Signs Temp 97.3 F 08/24/19 05:11 Pulse 69 08/24/19 05:11 Resp 15 08/24/19 05:11 BP 107/56 L 08/24/19 05:11 Pulse Ox 97 08/24/19 05:11 Weight - Most Recent: 235 lb Med Orders - Current: Current Medications Acetaminophen (Tylenol Extra Strength) 500 mg PO Q4H PRN PRN Reason: Pain Acetaminophen (Tylenol Extra Strength) 1,000 mg PO Q4H PRN PRN Reason: Pain Last Admin: 08/23/19 00:23 Dose: 1,000 mg Documented by: Benzocaine/Menthol (Dermoplast Pain Relief 20%-0.5% [place]) 78 gm TOP ASDIRECTED PRN PRN Reason: Perineal Comfort Measure Bisacodyl (Dulcolax) 10 mg RECTAL ONETIME PRN PRN Reason: Constipation Docusate Sodium (Colace) 100 mg PO BID PRN PRN Reason: Constipation Emollient Ointment (Lansinoh Hpa) 0 gm TOP ASDIRECTED PRN PRN Reason: Sore Nipples Ibuprofen (Motrin) 400 mg PO Q4H PRN PRN Reason: Pain Ibuprofen (Motrin) 800 mg PO Q6H PRN PRN Reason: Pain Oxycodone HCl (Oxycodone) 5 mg PO Q2H PRN PRN Reason: Pain Witch Rody (Tucks) 1 pad TOP ASDIRECTED PRN PRN Reason: comfort care Discontinued Medications Bupivacaine HCl (Sensorcaine-Mpf 0.25%) Confirm Administered Dose 10 ml .ROUTE .STK-MED ONE Stop: 08/22/19 21:35 Last Admin: 08/23/19 23:45 Dose: Not Given Documented by: Carboprost Tromethamine (Hemabate Ds) 250 mcg IM ASDIRECTED PRN PRN Reason: Post Hemorrhage Fentanyl (Sublimaze) Confirm Administered Dose 100 mcg .ROUTE .[facility] ONE Stop: 08/22/19 18:21 Last Admin: 08/23/19 23:45 Dose: Not Given Documented by: Oxytocin/Sodium Chloride (Oxytocin 30 Unit/500 Ml-Ns) 30 unit in 500 mls @ 999 mls/hr IV TITRATE [facility] Last Admin: 08/22/19 21:36 Dose: 999 mls/hr Documented by: Tranexamic Acid 1,000 mg/ (Sodium Chloride) 110 mls @ 660 mls/hr IV ONETIME PRN PRN Reason: Bleeding Oxytocin/Sodium Chloride (Oxytocin 30 Unit/500 Ml-Ns) 30 unit in 500 mls @ 2 mls/hr IV TITRATE [facility]; Protocol Ampicillin Sodium 2 gm/ Sodium (Chloride) 100 mls @ 200 mls/hr IV ONETIME ONE Stop: 08/22/19 01:29 Last Admin: 08/22/19 01:35 Dose: 200 mls/hr Documented by: Ampicillin Sodium 1 gm/ Sodium (Chloride) 50 mls @ 100 mls/hr IV Q4H [facility] Last Admin: 08/22/19 18:13 Dose: 100 mls/hr Documented by: Lactated Ringer's (Ringers, Lactated) 1,000 mls @ 150 mls/hr IV ASDIRECTED [facility] Last Infusion: 08/22/19 18:13 Dose: Infused Documented by: Fentanyl/Bupivacaine HCl (Fentanyl/Bupivacaine/Ns 2 Mcg-0.125% 250 Ml) Confirm Administered Dose 250 mls @ as directed .ROUTE .[facility] ONE Stop: 08/22/19 18:21 Last Admin: 08/23/19 23:46 Dose: Not Given Documented by: Lidocaine HCl (Xylocaine 1%) 50 ml INJECT ONETIME PRN PRN Reason: Laceration repair Methylergonovine Maleate (Methergine) 0.2 mg IM ASDIRECTED PRN PRN Reason: Post Hemorrhage Misoprostol (Cytotec) 200 mcg PO ONETIME PRN PRN Reason: Post Hemorrhage Misoprostol (Cytotec) 25 mcg VAG ONETIME PRN PRN Reason: Cervical Ripening Last Admin: 08/22/19 10:01 Dose: 25 mcg Documented by: Misoprostol (Cytotec) 25 mcg VAG Q4H PRN PRN Reason: Cervical Ripening Last Admin: 08/22/19 05:47 Dose: 25 mcg Documented by: Misoprostol (Cytotec) 25 mcg PO ONETIME PRN PRN Reason: Cervical Ripening Last Admin: 08/22/19 10:01 Dose: 25 mcg Documented by: Misoprostol (Cytotec) 25 mcg PO Q4H PRN PRN Reason: Cervical Ripening Last Admin: 08/22/19 05:47 Dose: 25 mcg Documented by: Nalbuphine HCl (Nubain) 10 mg IVPUSH Q1H PRN PRN Reason: Pain (severe 7-10) Last Admin: 08/22/19 15:57 Dose: 10 mg Documented by: Ondansetron HCl (Zofran) 4 mg IVPUSH Q6H PRN PRN Reason: Nausea/Vomiting Last Admin: 08/22/19 15:58 Dose: 4 mg Documented by: Sodium Chloride (Saline Flush) 10 ml FLUSH ASDIRECTED PRN PRN Reason: Keep Vein Open Sodium Chloride (Saline Flush) 2.5 ml FLUSH ASDIRECTED PRN PRN Reason: Keep Vein Open Sodium Chloride (Normal Saline) 10 ml IV ASDIRECTED PRN PRN Reason: IV Use Sterile Water (Sterile Water For Irrigation) 1,000 ml IRR ASDIRECTED PRN PRN Reason: delivery Terbutaline Sulfate (Brethine) 0.25 mg SUBCUT ASDIRECTED PRN PRN Reason: Tacysystole - Exam General: Reports: Alert, Oriented, Cooperative, No Acute Distress Lungs: Reports: Normal Respiratory Effort Cardiovascular: Reports: Regular Rate, Regular Rhythm GI/Abdominal Exam: Soft, Non-Tender (Female) Exam: Deferred Rectal (Female) Exam: Deferred Back Exam: Reports: Normal Inspection, Full Range of Motion Extremities: Normal Inspection, Normal Range of Motion, Non-Tender, Normal Capillary Refill Skin: Reports: Warm, Dry, Intact Neurological: Reports: No New Focal Deficit, Normal Gait, Normal Speech, Normal Tone Psy/Mental Status: Reports: Alert, Normal Affect, Normal Mood
== END 2019-08-24 22:55 | disposition home or self-care (01) | DRG 807 ==
LOC: MW.OB 00:06 → MW.OBCHECK 00:06 → MW.OB 00:12 → MW.OBCHECK 00:12 → OBSVTOIN 22:04 → MW.OB 08-23 03:46
PROVIDERS: ADMIT Obstetrics & Gynecology; ATTEND Obstetrics & Gynecology
PROC: 10E0XZZ Delivery of Products of Conception, External Approach (ICD-10-PCS; principal; 2019-08-22)
PROC: 10D17Z9 Manual Extraction of Products of Conception, Retained, Via Natural or Artificial Opening (ICD-10-PCS; 2019-08-22)
PROC: 10907ZC Drainage of Amniotic Fluid, Therapeutic from Products of Conception, Via Natural or Artificial Opening (ICD-10-PCS; 2019-08-22)
PROC: 3E0R3BZ Introduction of Anesthetic Agent into Spinal Canal, Percutaneous Approach (ICD-10-PCS; 2019-08-22)
PROC: 00HU33Z Insertion of Infusion Device into Spinal Canal, Percutaneous Approach (ICD-10-PCS; 2019-08-22)
DX: O16.4 Unspecified maternal hypertension, complicating childbirth (principal); Z37.0 Single live birth; O69.81X0 Labor and delivery complicated by cord around neck, without compression, not applicable or unspecified; Z20.828 Contact with and (suspected) exposure to other viral communicable diseases; O99.824 Streptococcus B carrier state complicating childbirth; Z3A.39 39 weeks gestation of pregnancy; Z79.82 Long term (current) use of aspirin; Z79.899 Other long term (current) drug therapy
CPT/HCPCS: 36415; 51702; 59025; 59409; 76857; 76857-26; 85014; 85018; 85027; 86592; 86593; 86850; 86900; 86901; A9270-GY; J0290; J2300; J2405; J2590; J7050; J7120; U0002

== ENCOUNTER 2020-03-16 20:05 | Emergency (ER) | payer BC, MEDICAID ==
--- NOTE | 2020-03-16 20:14 | EDM.PDOC ---
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 Time Seen by Provider: 03/16/20 20:06 - Related Data Allergies Allergy/AdvReac Type Severity Reaction Status Date / Time latex Allergy Rash Verified 03/16/20 20:23 Home Meds: Home Meds Aspirin 1 tab PO BEDTIME 08/16/19 [History] Pnv No.95/Ferrous Fum/Folic AC [ Multivitamin Tablet] 1 tab PO BEDTIME 08/16/19 [History] Sertraline [Zoloft] 100 mg PO DAILY 03/16/20 [History] Departure - Departure Time of Disposition: 22:07 Disposition: Home, Self-Care 01 Condition: Good Clinical Impression: Threatened miscarriage - Discharge Information *PRESCRIPTION DRUG MONITORING PROGRAM REVIEWED*: Not Applicable *COPY OF PRESCRIPTION DRUG MONITORING REPORT IN PATIENT LISSA: Not Applicable Instructions: Threatened Miscarriage, [id number] Referrals: PCP,None [Primary Care Provider] - Forms: ED Department Discharge Additional Instructions: Please be sure to call your OBs office on Thursday. If you develop any severe abdominal pain or you start soaking through pads or tampons over the weekend please return to the ER. The following information is given to patients seen in the emergency department who are being discharged to home. This information is to outline your options for follow-up care. We provide all patients seen in our emergency department with a follow-up referral. The need for follow-up, as well as the timing and circumstances, are variable depending upon the specifics of your emergency department visit. If you don't have a primary care physician on staff, we will provide you with a referral. We always advise you to contact your personal physician following an emergency department visit to inform them of the circumstance of the visit and for follow-up with them and/or the need for any referrals to a consulting specialist. The emergency department will also refer you to a specialist when appropriate. This referral assures that you have the opportunity for follow-up care with a specialist. All of these measure are taken in an effort to provide you with optimal care, which includes your follow-up. Under all circumstances we always encourage you to contact your private physician who remains a resource for coordinating your care. When calling for follow-up care, please make the office aware that this follow-up is from your recent emergency room visit. If for any reason you are refused follow-up, please contact the [facility] Emergency Department at and asked to speak to the emergency department charge nurse. <Martha Nolan E - Last Filed: 03/17/20 09:56> ED HPI GENERAL MEDICAL PROBLEM - General Source of Information: Reports: Patient History Limitations: Reports: No Limitations - History of Present Illness INITIAL COMMENTS - FREE TEXT/NARRATIVE: HISTORY AND PHYSICAL: History of present illness: Patient is a 34-year-old female who presents to the emergency room with complaints of painless vaginal bleeding in . Patient states she is 15 weeks gestation and [facility]. She did just have an ultrasound done last week which she reports was normal. About 45 minutes prior to arrival she started having vaginal bleeding. This was without trauma, sexual intercourse or any type of injury. Patient denies any fever, chills, headache, change in vision, syncope or near syncope. Denies any chest p ain, back pain, shortness of breath or cough. Denies any abdominal pain, nausea, vomiting, diarrhea, constipation or dysuria. Has not noted any blood in urine or stool. Patient has been eating and drinking appropriately. , P:1 - had a miscarriage at 8 weeks gestation 2019. Review of systems: As per history of present illness and below otherwise all systems reviewed and negative. Past medical history: As per history of present illness and as reviewed below otherwise noncontributory. Surgical history: As per history of present illness and as reviewed below otherwise noncontributory. Social history: See social history for further information Family history: As per history of present illness and as reviewed below otherwise noncontributory. Physical exam: General: Well developed and well nourished 34 year old female. Alert and orientated x 3. Nontoxic in appearance and in no acute distress. Vital signs are stable and have been reviewed by me. Nursing notes were reviewed. HEENT: Atraumatic, normocephalic, pupils equal and reactive bilaterally, negative for conjunctival pallor or scleral icterus, mucous membranes moist, trachea midline. No drooling or trismus noted. No meningeal signs. No hot potato voice noted. Lungs: Clear to auscultation bilaterally. No wheezes, rales, or rhonchi. Chest nontender. Normal work of breathing, no accessory muscles used. Heart: S1S2, regular rate and rhythm without overt murmur, gallops, or rubs. No JVD. No peripheral edema Abdomen: Soft, nondistended, nontender. Normoactive bowel sounds. Negative for masses or costovertebral tenderness. Pelvis: Stable nontender. Genitourinary/Rectal: This was done with consent and a coarse wire drawer at the bedside. There is blood in the vaginal vault, cervical os is closed. Tolerated well. Skin: Intact, warm, dry. No lesions or rashes noted. Hematologic: No petechiae or purpra. Mucosa appropriate color and normal nail bed color and refill. Extremities: Atraumatic, moves all extremities per self without difficulty or deficits, negative for cords or calf pain. Neurovascular unremarkable. Neuro: Awake, alert, oriented. Cranial nerves II through XII unremarkable. Cerebellum unremarkable. Motor and sensory unremarkable throughout. Exam nonfocal. Psychiatric: Mood and affect are appropriate. Normal thought process. Answering questions appropriately. Notes: *This patient was seen and evaluated during the 2019 SARS-CoV-2 novel coronavirus pandemic period. Community viral transmission is ongoing at time of this encounter and the emergency department is operating under pandemic response procedures. Per patient history she is: O positive. Pelvic exam reveals her cervial os is closed, she does have some bleeding in the vault. She has no pain associated with this. She is agreeable to labs and ultrasound at this time. I am unable to view the ultrasound that was [facility]. 2200: Lab results/imaging is still pending at this time. Patient care has been handed over to Dr Medrano who is aware of this patient and will follow/disposition appropriately. Diagnostics: CBC, CMP, UA, OB ultrasound Therapeutics: None Prescription: None Impression: Threatened Miscarriage Definitive disposition and diagnosis as appropriate pending reevaluation and review of above. Onset: Today Duration: Minutes: Location: Reports: Pelvis Past Medical History HEENT History: Reports: Impaired Vision, Other (See Below) Other HEENT History: wears glasses for reading and driving at night. 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 Psychiatric History: Reports: Depression, Other (See Below) Other Psychiatric History: medicated very short-term Dermatologic History: Reports: Eczema - Infectious Disease History Infectious Disease History: Reports: Chicken Pox - Past Surgical History HEENT Surgical History: Reports: None Cardiovascular Surgical History: Reports: None Dermatological Surgical History: Reports: None Social & Family History - Caffeine Use Caffeine Use: Reports: Coffee, Soda Caffeine Use Comment: little bit of soda (one a day), little bit of coffee (not often) ED ROS GENERAL - Review of Systems Review Of Systems: Comprehensive ROS is negative, except as noted in HPI. ED EXAM, GI/ABD - Physical Exam Exam: See Below (See dictation) Course - Vital Signs Last Recorded V/S: Last Vital Signs Temp 97.7 F 03/16/20 22:23 Pulse 78 03/16/20 22:23 Resp 16 03/16/20 22:23 BP 146/94 H 03/16/20 22:23 Pulse Ox 97 03/16/20 22:23 - Orders/Labs/Meds Labs: Laboratory Tests 03/16/20 03/16/20 Range/Units 20:05 20:05 WBC 9.69 (4.0-11.0) K/uL RBC 4.90 (4.30-5.90) M/uL Hgb 14.6 (12.0-16.0) g/dL Hct 42.3 (36.0-46.0) % MCV 86.3 (80.0-98.0) fL MCH 29.8 (27.0-32.0) pg MCHC 34.5 (31.0-37.0) g/dL RDW Std Deviation 42.5 (28.0-62.0) fl RDW Coeff of [place] 14 (11.0-15.0) % Plt Count 208 (150-400) K/uL MPV 9.40 (7.40-12.00) fL Neut % (Auto) 74.3 (48.0-80.0) % Lymph % (Auto) 18.7 (16.0-40.0) % [place] % (Auto) 5.5 (0.0-15.0) % Eos % (Auto) 1.4 (0.0-7.0) % Baso % (Auto) 0.1 (0.0-1.5) % Neut # (Auto) 7.2 H (1.4-5.7) K/uL Lymph # (Auto) 1.8 (0.6-2.4) K/uL [place] # (Auto) 0.5 (0.0-0.8) K/uL Eos # (Auto) 0.1 (0.0-0.7) K/uL Baso # (Auto) 0.0 (0.0-0.1) K/uL Nucleated RBC % 0.0 /100WBC Nucleated RBCs # 0 K/uL Sodium 138 (136-145) mmol/L Potassium 4.4 (3.5-5.1) mmol/L Chloride 103 (98-107) mmol/L Carbon Dioxide 26.3 (21.0-32.0) mmol/L BUN 11 (7.0-18.0) mg/dL Creatinine 0.7 (0.6-1.0) mg/dL Est Cr Clr Drug Dosing 95.44 mL/min Estimated GFR (MDRD) > 60.0 ml/min Glucose 101 (74-106) mg/dL Calcium 9.1 (8.5-10.1) mg/dL Total Bilirubin 0.1 L (0.2-1.0) mg/dL AST 8 L (15-37) IU/L ALT 18 (14-63) IU/L Alkaline Phosphatase 70 (46-116) U/L Total Protein 7.3 (6.4-8.2) g/dL Albumin 3.2 L (3.4-5.0) g/dL Globulin 4.1 H (2.6-4.0) g/dL Albumin/Globulin Ratio 0.8 L (0.9-1.6) Sepsis Event Note (ED) - Focused Exam Vital Signs: Vital Signs Temp Pulse Resp BP Pulse Ox 03/16/20 22:23 97.7 F 78 16 146/94 H 97
[2020-03-16 21:21] LABS: BLOOD UREA NITROGEN,BUN 11 mg/dL (7.0-18.0); CARBON DIOXIDE,CO2 26.3 mmol/L (21.0-32.0); CHLORIDE,CL 103 mmol/L (98-107); GLUCOSE RANDOM 101 mg/dL (74-106); POTASSIUM,K 4.4 mmol/L (3.5-5.1); SODIUM,NA 138 mmol/L (136-145)
--- NOTE | 2020-03-16 21:58 | PCM.SN.2 ---
- Free Text/Narrative Note: 34yoF (prior miscarriage at 8 wks) at 15wk gestation presenting with vaginal bleeding, Pt with closed cervix and painless vaginal bleeding. US pending. Ultrasound with live IUP this was discussed with the patient threatened miscarriage instructions discussed return precautions discussed and understood she will follow-up with her OB early next week.
--- NOTE | 2020-03-16 22:28 | US ---
HISTORY: Fifteen weeks with vaginal bleeding. COMPARISON: None available of this gestation. TECHNIQUE: Ultrasound examination of the is performed with transabdominal technique. FINDINGS: A single intrauterine gestation is seen in transverse lie with the head to the maternal right with regular cardiac activity at 159 beats per minute. The placenta is wrap-around, primarily in the anterior and fundal region, but extending inferiorly posteriorly to reach the cervical loss. Recommend follow-up ultrasound to exclude a persistent marginal placenta previa. The placental grade is 0 and the amniotic fluid volume is normal. The cervix is closed. Cervical length is normal at 6.5 centimeters. BPD: 3.1 cm 15 weeks 5 days HC: 11.2 cm 15 weeks 3 days AC: 9.1 cm 15 weeks 2 days FL: 1.9 cm 15 weeks 4 days The estimated age by ultrasound is 15 weeks 3 days, with an estimated date of delivery of 09/04/2020. This correlates well with the clinical age of 15 weeks 2 days. The ultrasound ratios are normal. The estimated weight of 120 grams is at the 49th percentile based on the clinical dates The fetus is too young to permit a detailed anatomic survey. The intracranial structures, cord insertion site are normal in appearance. IMPRESSION: Single intrauterine gestation in transverse lie with head to the maternal right with regular cardiac activity. Estimated gestational age is 15 weeks 3 days. Wrap-around placenta with posterior inferior extension of the placenta reaching the cervical os. Recommend follow-up ultrasound to exclude a persistent marginal placenta previa. No sign of subchorionic hemorrhage or cervical dilatation. Dictated by Hood Hale MD @ Mar 16 2020 10:19PM Signed by Dr. Hood Hale @ Mar 16 2020 10:26PM
== END 2020-03-16 22:23 | disposition home or self-care (01) ==
LOC: MW.ED 20:05
DX: O20.0 Threatened abortion (principal); I10 Essential (primary) hypertension; Z79.82 Long term (current) use of aspirin; Z79.899 Other long term (current) drug therapy; Z91.040 Latex allergy status; Z3A.15 15 weeks gestation of pregnancy
CPT/HCPCS: 36415; 76817; 76817-26; 80053; 85025; 99284-25

== ENCOUNTER 2021-07-27 19:18 | Inpatient (IN) | payer SELFPAY ==
[2021-07-27] MEDS ORDERED: Terbutaline 1 MG/ML SDV SUBCUT PRN (19:34)
[2021-07-27] MEDS ORDERED: Sodium Chloride 0.9% 2.5 ML Syringe FLUSH PRN (19:36)
[2021-07-27] MEDS ORDERED: Lidocaine 1% 50 ML MDV INJECT PRN (19:36)
[2021-07-27] MEDS ORDERED: Butorphanol 1 MG/ML SDV IVPUSH PRN (19:36)
[2021-07-27] MEDS ORDERED: Sodium Chloride 0.9% 10 ML Syringe FLUSH PRN (19:36)
[2021-07-27] MEDS ORDERED: Water For Irrigation,Sterile 1,000 ML Container IRR PRN (19:36)
[2021-07-27] MEDS ORDERED: Methylergonovine 0.2 MG/1 ML Amp IM PRN (19:36)
[2021-07-27] MEDS ORDERED: Carboprost Tromethamine 250 MCG/1 ML Amp IM PRN (19:36)
[2021-07-27] MEDS ORDERED: Sodium Chloride 0.9% 20 ML SDV FLUSH PRN (19:36)
[2021-07-27] MEDS ORDERED: Tranexamic Acid 1,000 MG in Sodium Chloride 0.9% 100 ML IV PRN (19:36)
[2021-07-27] MEDS ORDERED: Ondansetron 4 MG/2 ML SDV IVPUSH PRN (19:36)
[2021-07-27] MEDS ORDERED: Misoprostol 200 MCG Tab PO PRN (19:36)
[2021-07-27] MEDS ORDERED: Oxytocin/0.9 % Sodium Chloride 30 UNIT/500 ML BAG IV SCH ×2 (19:45)
[2021-07-27] MEDS ORDERED: Ampicillin 2 GM in Sodium Chloride 0.9% 100 ML IV ONE (20:00)
[2021-07-27] MEDS: Lactated Ringers 1,000 ML IV SCH (20:26)
[2021-07-27] MEDS: Misoprostol 25 MCG (1/4 of 100 MCG) Tab PO PRN (20:28)
[2021-07-27] MEDS: Misoprostol 25 MCG (1/4 of 100 MCG) Tab VAG PRN (20:28)
[2021-07-28] MEDS: Ampicillin 1 GM in Sodium Chloride 0.9% 50 ML IV SCH ×3 (00:21→07:45)
[2021-07-28] MEDS: Misoprostol 25 MCG (1/4 of 100 MCG) Tab PO PRN (00:29)
[2021-07-28] MEDS: Misoprostol 25 MCG (1/4 of 100 MCG) Tab VAG PRN (00:30)
[2021-07-28] MEDS: Lactated Ringers 1,000 ML IV SCH (07:08)
[2021-07-28] MEDS ORDERED: Ropivacaine in NACL,ISO-OSM/PF 400 ML ONE (07:24)
[2021-07-28] MEDS ORDERED: ePHEDrine 50 MG/ML SDV IVPUSH PRN ×2 (08:04)
[2021-07-28] MEDS ORDERED: Ropivacaine in NACL,ISO-OSM/PF 800 MG in Premix Bag 1 BAG EPIDUR SCH ×2 (08:15)
[2021-07-28] MEDS ORDERED: Benzocaine/Menthol 20%-0.5% Spray 78 GM Cannister TOP PRN (08:53)
[2021-07-28] MEDS ORDERED: Witch Hazel Medicated Pads 40/Jar TOP PRN (08:53)
[2021-07-28] MEDS ORDERED: Bisacodyl 10 MG Supp RECTAL PRN (08:53)
[2021-07-28] MEDS ORDERED: Lanolin 100% Cream 7 GM Tube TOP PRN (08:53)
[2021-07-28] MEDS ORDERED: Ibuprofen 400 MG Tab PO PRN (08:53)
[2021-07-28] MEDS ORDERED: Ibuprofen 800 MG Tab PO PRN (08:53)
[2021-07-28] MEDS ORDERED: Acetaminophen 500 MG Tab PO PRN ×2 (08:53)
[2021-07-28] MEDS ORDERED: oxyCODONE 5 MG Tab PO PRN (08:53)
[2021-07-28] MEDS ORDERED: Docusate Sodium 100 MG Cap PO PRN (08:53)
== END 2021-07-29 23:30 | disposition home or self-care (01) | DRG 807 ==
LOC: MW.OBCHECK 19:18 → MW.OB 19:36 → OBSVTOIN 07-28 08:53 → MW.OB 07-28 12:00
PROVIDERS: ADMIT Obstetrics & Gynecology; ATTEND Obstetrics & Gynecology Obstetrics
PROC: 3E033VJ Introduction of Other Hormone into Peripheral Vein, Percutaneous Approach (ICD-10-PCS; principal; 2021-07-28)
PROC: 10E0XZZ Delivery of Products of Conception, External Approach (ICD-10-PCS; 2021-07-28)
PROC: 3E0R3BZ Introduction of Anesthetic Agent into Spinal Canal, Percutaneous Approach (ICD-10-PCS; 2021-07-28)
DX: O10.913 Unspecified pre-existing hypertension complicating pregnancy, third trimester (principal); Z20.822 Contact with and (suspected) exposure to COVID-19; Z37.0 Single live birth; Z3A.39 39 weeks gestation of pregnancy; Z79.82 Long term (current) use of aspirin; Z79.899 Other long term (current) drug therapy; Z91.040 Latex allergy status
CPT/HCPCS: 36415; 51702; 59025; 59409; 85014; 85018; 85027; 86592; 86850; 86900; 86901; A9270-GY; J0290; J2795; J7120; U0002